=== PATIENT | female | born 1940 | race Caucasian/White ===

== ENCOUNTER 2022-07-19 19:06 | Emergency (ER) | payer MEDICARE, MEDICAID ==
[~2022-07-19] VITALS: Ht 172.7 cm; Wt 98.0 kg
[2022-07-19 19:34] LABS: BASOPHILS % (AUTO) 0.6 % (0-1); EOSINOPHILS # (AUTO) 0.2 X10'3 (0-0.9); HEMATOCRIT 43.5 % (35.0-45.0); HEMOGLOBIN 14.5 g/dl (12.0-16.0); LYMPHOCYTES # (AUTO) 1.9 X10'3 (1.1-4.8); LYMPHOCYTES % (AUTO) 24.1 % (21-51); MEAN CORPUSCULAR HEMOGLOBIN 31.3 PG (27.0-31.0); MEAN CORPUSCULAR HGB CONC 33.3 g/dL (33.0-36.5); MEAN PLATELET VOLUME 7.6 FL (7.4-10.4); MONOCYTES # (AUTO) 0.7 X10'3 (0-0.9); MONOCYTES % (AUTO) 8.6 % (2-12); NEUTROPHILS # (AUTO) 5.2 X10'3 (1.8-7.7); NEUTROPHILS % (AUTO) 64.7 % (42-75); PLATELET COUNT 247 X10'3 (140-440); RED BLOOD COUNT 4.63 X10'6 (4.20-5.60); RED CELL DISTRIBUTION WIDTH 13.7 % (11.5-14.5)
--- NOTE | 2022-07-19 19:34 | NUR ---
acs protocol ordered, lab has been done, awaiting ekg. ER impacted. Medic states MAP 68, pt mentation great, she is joking with them.
[2022-07-19 19:48] LABS: ALANINE AMINOTRANSFERASE 15 U/L (12-78); ALBUMIN 3.2 G/DL (3.4-5.0); ALBUMIN/GLOBULIN RATIO 0.9 (1.1-1.5); ALKALINE PHOSPHATASE 58 IU/L (46-116); ANION GAP 9 (8-16); ASPARTATE AMINO TRANSFERASE 12 U/L (10-37); BILIRUBIN,TOTAL 0.5 MG/DL (0.1-1.0); BLOOD UREA NITROGEN 20 MG/DL (7-18); BUN/CREATININE RATIO 29.4 (10.0-20.0); CALCIUM 9.2 MG/DL (8.5-10.1); CHLORIDE 105 MMOL/L (99-107); CREATININE 0.68 MG/DL (0.40-0.90); GLUCOSE 125 MG/DL (70-104); POTASSIUM 3.8 MMOL/L (3.5-5.1); SODIUM 139 MMOL/L (135-145); TOTAL CARBON DIOXIDE 24.8 MMOL/L (24-32); TOTAL PROTEIN 6.9 G/DL (6.4-8.2); eGFR 83 ML/MIN
--- NOTE | 2022-07-20 02:37 | NUR ---
with walking 30 feet she was 97 % and than an additional 30 ft she was 87% RA. After she sat back down she recovered quickly to 96%. Dr Patel made aware.
--- NOTE | 2022-07-20 02:39 | NUR ---
daughter has been at the [facility] for awhile.
[2022-07-20] MEDS ORDERED: ipratropium/albuterol 3ml nebule NEB STA (02:45)
--- NOTE | 2022-07-20 03:05 | NUR ---
DAMION, DAUGHTERS PHONE # [phone]
[2022-07-20] MEDS ORDERED: iohexol 350MG/ML 100ml bottle IV ONE (03:09)
--- NOTE | 2022-07-20 03:26 | NUR ---
ASSUMED CARE OF PT. AFTER RECEIVING REPORT. PT. TRANSFERRED TO [facility]. PT. AWAKE AND ALERT. CO MILD LEFT SIDED CP RADIATING TO HER BACK, NOT IN DISTRESS.
[2022-07-20 05:47] VITALS: BP 111/62
== END 2022-07-20 05:49 | disposition home or self-care (01) ==
LOC: ER 19:06
DX: R07.9 Chest pain, unspecified (principal); M25.512 Pain in left shoulder; M54.9 Dorsalgia, unspecified
CPT/HCPCS: 36415; 71045; 71275; 80053; 83880; 84484; 85025; 93005; 99285; J3490; Q9967